=== PATIENT | male | born 1965 | race Caucasian/White ===

== ENCOUNTER 2020-08-27 09:14 | Emergency (ER) | payer BC, OTHER ==
--- OUTSIDE RECORDS SUMMARY | 2020-08-27 09:17 | XMS REPORT | Continuity of Care Document ---
:1965 Author Organization [facility] t Address [address] [place] [address] Care Team Providers Name Role Phone Nemesio MÁRQUEZ, S. Primary Care Physician Micheal GAMBLE Attending Clinician Unavailable Joe Fairbanks MD Attending Clinician Otto RN Attending Clinician Unavailable Lab, Fam Pob I Attending Clinician Unavailable Doctor Unassigned, Name Attending Clinician Unavailable Payers Payer Name Policy Type Policy Effective Date Expiration Date [facility] ce Number BCBSBCBS CHOICE [id number] 2018 [place] PPO/FEDERAL 00:00:00 Christian EMPL [id number] 2018-Presen tPPO Problems Condition Condition Condition Status Onset Resolution Last Treating Co mments Source Name Details Category Date Date Treatment Clinician Date Nocturia/f Nocturia/f Disease Active 2019- [place] requency requency 2-11 Method i 00:00: st 00 Osteopenia Osteopenia Disease Active 2018-05 [place] 0-07 Method[facility] 00:00: st 00 Elevated Elevated Disease Active [place] lipase lipase 7 Methodi 00:00: st 00 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 705 Me thodi to early to early 00:00: st childhood, childhood, 00 depressive depressive disorder disorder 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 7 [place] associated associated 00:00: st with type with type 00 2 diabetes 2 diabetes mellitus mellitus Type 2 Type 2 Disease Active 2015-05 [place] diabetes diabetes 2-12 Method i mellitus mellitus 00:00: st without without 00 complicati complicati on, with on, with long-term long-term current current use of use of insulin insulin Obesity Obesity Disease Active 2015-05 [place] due to due to 06-18 [facility] excess excess 00:00: st calories calories 00 Essential Essential Disease Active 2015-05 Dion yip hypertensi hypertensi 06-18 Me [facility] on on 00:00: st 00 Vitamin D Vitamin D Disease Active [place] deficiency deficiency 01-10 Me thodi 00:00: st 00 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 01-10 Me thodi on on 00:00: st 00 Abnormal Abnormal Disease Active [place] thyroid thyroid 01-10 [facility] function function 00:00: st test test 00 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 Family History Family Member Diagnosis Comments Start Date Stop Date Source Natural father No Known Problems [place] Natural mother No Known Problems [place] Social History Social Habit Start Date Stop Date Quantity Comments Source Tobacco use and 2020-01-13 2020-01-13 Never used [facility] ethodist exposure 00:00:00 00:00:00 Alcohol intake 2020-01-13 2020-01-13 [facility] non-drinker of alcohol (finding) Sex Ass[birth year] At [birth year] [facility] Smoking Status Start Date Stop Date Source Never smoker [facility] Medications Ordered Filled Start Stop Current Ordering Indication Dosage Frequency Signature Comments Components Source Medication Medication Date Date Medication? Clinician (SIG) Name Name blood sugar Yes DX E11.65 [facility] diagnostic 08-25 Patient is Met hodi strips 00:00: testing st (glucose 00 QID. One blood) Touch strip test Verio strips lisinopriL Yes TAKE 1 [place] (PRINIVIL) 4-19 TABLET BY Meth jono 40 mg 00:00: MOUTH st tablet 00 EVERY DAY Farxiga 10 Yes TAKE 1 [place] mg tablet 4-19 TABLET BY Metho di 00:00: MOUTH st 00 EVERY DAY lancets 33 Yes DX E11.65 [place] gauge misc 08-23 Patient is Met hodi 00:00: testing st 00 QID. Please match to machine and insurance. blood sugar 2020- No DX E11.65 [facility] 08-23 Patient is Me thodi strips 00:00: 00:[address] (glucose 00 :00 QID. One blood) Touch strip test Verio strips Victoza Yes INJECT 1.8 [place] 3-Nicholas 0.6 3-01 MG UNDER Method i mg/0.1 mL 00:00: THE SKIN st (18 mg/3 00 ONCE DAILY mL) pen injector blood sugar 2020- No 1{strip Q.25D Inject 1 [facility] 06-09 } strip Methodi strips 00:00: 00:[address] (OneTouch 00 :00 skin 4 Ultra Blue (four) Test Strip) times a strip test day. strips blood sugar 2020- No 1{strip Q.25D Inject 1 [facility] 06-09 } strip Methodi strips 00:00: 00:[address] (OneTouch 00 :00 skin 4 Ultra Blue (four) Test Strip) times a strip test day. strips semaglutide 2019-05 Yes 1mg Q1W Inject 1 [place] (Ozempic) 1 2-14 mg under Meth jono mg/dose (2 00:00: the skin st mg/1.5 mL) 00 every 7 pen days. injector insulin 2019- Yes 4U [id number] Inject 4 [place] aspart, 2-14 [id number] Units Metho di niacinamide 00:00: 3D under the s t , (Fiasp 00 skin 3 FlexTouch (three) U-100 times a Insulin) day with 100 unit/mL meals. On (3 mL) sliding insulin pen scale max dose 10 units per meal. insulin 2019-05- No 5U [id number] Inject [place] lispro 2-14 12-14 [id number] 5-10 Units Methodi (HumaLOG 00:00: 00:[address] KwikPen 00 :00 skin 3 Insulin) (three) 100 unit/mL times a injection day before pen meals. cholecalcif 2019-0 Yes 1000U QD Take 1,000 [place] eladio, 9-08 Units by Methodi vitamin D3, 09:27: mouth st (VITAMIN 13 daily. D3) 1,000 unit tablet lactulose 2019-0 Yes 10g QD Take 10 g [place] 20 gram/30 9-08 by mouth Metho di mL solution 09:27: daily. st 13 riFAXimin 2019-0 Yes 550mg Q.5D Take 550 [place] (XIFAXAN) 9-08 mg by Methodi 550 mg 09:26: mouth 2 st tablet 06 (two) times a day. escitalopra 2019-0 Yes [place] (LEXAPRO) 7-07 Methodi 10 MG 00:00: st tablet 00 amLODIPine 2019-0 2020- No TAKE 1 [place] (NORVASC) 5 6-11 09-08 TABLET BY Ks thodi mg tablet 00:00: 00:[address] 00 :00 EVERY DAY Levemir 2019-0 Yes INJECT 25 [place] FlexTouch 4-13 UNITS Methodi U-100 00:00: UNDER THE st Insuln 100 00 SKIN unit/mL (3 NIGHTLY. mL) insulin pen pen needle, Yes USE [place] diabetic 3-20 DIRECTED 5 Metho di (BD 00:00: TIMES st Ultra-Fine 00 DAILY Mini Pen Needle) 31 gauge x 3/16" needle dapaglifloz 2019-2020- No 10mg QD Take 1 [place] in 3-20 04-19 tablet (10 Methodi (Farxiga) 00:00: 00:00 mg total) st 10 mg 00 :00 by mouth tablet daily. lisinopriL 2020- No 40mg QD Take 1 [place] (PRINIVIL) 3-20 -19 tablet (40 Me thodi 40 mg 00:00: 00:00 mg total) st tablet 00 :00 by mouth daily. amLODIPine No 10mg QD Take 1 [place] (NORVASC) 3-20 -20 tablet (10 Met hodi 10 mg 00:00: 23:59 mg total) st tablet 00 :00 by mouth daily. Victoza No 1.8mg QD Inject 0.3 [place] 3-Nicholas 0.6 -20 - mL (1.8 mg Met hodi mg/0.1 mL 00:00: 00:00 total) st (18 mg/3 00 :00 under the mL) pen skin injector daily. flash 2019- No 1{devic 1 Device [place] glucose 05-0808 e} as needed Method i sensor 00:00: 00:00 (apply one st (FREESTYLE 00 :00 sensor LIV 14 every 14 DAY SENSOR) days to kit upper arm). Place one sensor on the skin every 14 days flash 2019- No 1{devic 1 Device [place] glucose 05-08 0908 e} as needed Method i scanning 00:00: 00:00 (scan st reader 00 :00 sensor as (FREESTYLE needed to LIV 14 check DAY READER) glucose). misc Scan Sensor as needed ONETOUCH 2020- No USE 1 Flash ULTRA BLUE 9-05 02-03 STRIOP 4 Meth jono TEST STRIP 00:00: 00:[address] strip test 00 :00 DAY strips NEEDED clonAZEPAM Yes .5mg QD Take 0.5 [place] (KlonoPIN) 8-22 mg by Methodi 0.5 MG 00:00: mouth once st tablet 00 daily. buPROPion Yes 150mg QD Take 150 [place] SR 6-16 mg by Methodi (WELLBUTRIN 00:00: mouth st SR) 150 MG 00 every 12 hr morning. tablet Vital Signs Vital Name Observation Time Observation Value Comments Source Heart rate 2020-05-04 10:46:00 69 /min [place] Respiratory rate 2020-05-04 10:46:00 18 /min [place] Systolic blood 2020-05-04 10:46:00 128 mm[Hg] [place]rek[place] n Christian pressure Diastolic blood 2020-05-04 10:46:00 63 mm[Hg] [place] Christian pressure Body temperature 2020-05-04 09:48:00 36.5 Lana [place] Body height 2020-01-13 09:21:00 180.3 cm [facility] [place] Body weight 2020-01-13 09:21:00 102.967 kg [facility] [place] BMI 2020-01-13 09:21:00 31.66 kg/m2 [place] Procedures Procedure Date / Time Performed Performing Clinician Sourc e CBC WITH PLATELET AND 2020-04-12 07:53:00 Latricia Fairbanks DIFFERENTIAL COMPREHENSIVE METABOLIC 2020-04-12 07:53:00 Latricia Fairbanks PANEL HEMOGLOBIN A1C 2020-04-12 07:53:00 Latricia Fairbanks BONE DENSITY 2020-04-06 13:52:48 Latricia Fairbanks POC GLUCOSE 2020-01-13 09:29:00 Latricia Fairbanks CBC WITH PLATELET AND 2019-12-25 07:42:00 Latricia Fairbanks DIFFERENTIAL COMPREHENSIVE METABOLIC 2019-12-25 07:42:00 Latricia Fairbanks PANEL HEMOGLOBIN A1C 2019-12-25 07:42:00 Latricia Fairbanks LIPASE LEVEL 2019-12-25 07:42:00 Latricia Fairbanks AMYLASE LEVEL 2019-12-25 07:42:00 Latricia Fairbanks LIPID PANEL 2019-12-25 07:42:00 Latricia Fairbanks MICROALBUMIN / CREATININE 2019-12-25 07:42:00 Latricia Fairbanks URINE RATIO T4, FREE 2019-12-25 07:42:00 Latricia Fairbanks THYROID STIMULATING 2019-12-25 07:42:00 Latricia Fairbanks HORMONE VITAMIN D 25 HYDROXY 2019-12-25 07:42:00 Latricia Fairbanks Christian LEVEL Plan of Care Planned Activity Planned Date Details Comments Source Future Scheduled 2022-05-11 DIABETES: RETINAL EYE [place] [facility] Test 00:00:00 EXAM [code = DIABETES: RETINAL EYE EXAM] Future Scheduled 2021-01-12 DIABETIC FOOT EXAM [place] [facility] Test 00:00:00 [code = DIABETIC FOOT EXAM] Future Scheduled 2020-12-24 URINE MICROALBUMIN [place] [facility] Test 00:00:00 [code = URINE MICROALBUMIN] Future Scheduled 2020-12-05 INFLUENZA VACCINE [place] [facility] Test 00:00:00 [code = INFLUENZA VACCINE] Future Scheduled 2014-01-25 COLONOSCOPY SCREENING [place] [facility] Test 00:00:00 [code = COLONOSCOPY SCREENING] Future Scheduled 2014-01-25 SHINGLES VACCINES (#1) [place] [facility] Test 00:00:00 [code = SHINGLES VACCINES (#1)] Future Scheduled 1982-01-25 Hepatitis C screening [place] [facility] Test 00:00:00 (procedure) [code = 199803950] Future Scheduled 1980 COVID-19 VACCINE (1) [place] [facility] Test 00:00:00 [code = COVID-19 VACCINE (1)] Encounters Start End Encounter Admission Attending Care Care Encounter Source Date/Time Date/Time Type Type Clinicians Facility Department ID 2020-05-04 2020-05-04 Outpatient [facility] [id number] [place] 00:00:00 00:00:00 772 [facility] i 2020-04-19 2020-04-19 Outpatient [facility] [id number] [place] 00:00:00 00:00:00 LATRICIA 649 Method i 2020-04-06 2020-04-06 Outpatient [facility] [id number] [place] 00:00:00 00:00:00 LATRICIA 354 Method i 2020-01-13 2020-01-13 Outpatient [facility] [id number] [place] 00:00:00 00:00:00 LATRICIA 471 Method i 2019-12-16 2019-12-16 Laboratory Lab, [facility] [id number] 14:27:21 14:47:21 Only Fam Pob I Health [id number] [place] [id number] Professio [id number] nal [address] 2019-12-16 2019-12-16 Letter Doctor JAMIA [id number] 00:00:00 00:00:00 (Out) Unassigned, SRIRAM [id number] [facility]sey [facility] [id number] Results Test Description Test Time Test Comments Results Result Comments Source Comprehensive metabolic panel 2020-04-13 00:51:00 Test Item Value Reference Range Interpretation Comme nts Glucose (test code = 121 mg/dL 65-99 H Fasting 2345-7) reference inter kirill For someone without known diabetes, a glu cose valuebetween 10 0 and 125 mg/dL is consis tent withprediabetes and should be confi rmed with afollow-up test . BUN (test code = 3094-0) 19 mg/dL 7-25 Creatinine (test code = 0.65 mg/dL 0.70-1.33 L For patients >49 years of 2160-0) age, the refere nce limitfor Creati nine is approximately 1 3% higher for peopleident ified as -Luciana n. EGFR Non-Afr. Kyr[place]z 109 See_Comment [Aut omated message] The (test code = 2775) system wh ich generated this result tra nsmitted reference range : > OR = 60 mL/min/1.73m 2. The reference range was not used to interpr et this result as normal/abnormal . EGFR 126 See_Comment [Auto mated message] The (test code = 87727-4) system which generated this result tra nsmitted reference range : > OR = 60 mL/min/1.73m 2. The reference range was not used to interpr et this result as normal/abnormal . BUN/creatinine ratio 29 See_Comment H [Autom ated message] The (test code = 3097-3) system which generated this result tra nsmitted reference range : 6 - 22 (calc). The ref erence range was not u sed to interpret this result as normal/abnormal . Sodium (test code = 142 mmol/L 051-131 9713-2) Potassium (test code = 4.1 mmol/L 3.5-5.3 2823-3) Chloride (test code = 109 mmol/L 98-110 2075-0) CO2 (test code = 2028-9) 27 mmol/L 20-32 Calcium (test code = 8.8 mg/dL 8.6-10.3 81664-0) Protein (test code = 6.1 g/dL 6.1-8.1 2885-2) Albumin, S (test code = 3.9 g/dL 3.6-5.1 1751-7) Globulin, total (test 2.2 See_Comment [Auto mated message] The code = 78248-4) system which generated this result tra nsmitted reference range : 1.9 - 3.7 g/dL (calc) . The reference range was not used to interpr et this result as normal/abnormal . Albumin/globulin ratio 1.8 See_Comment [Aut omated message] The (test code = 1759-0) system which generated this result tra nsmitted reference range : 1.0 - 2.5 (calc). The reference range was not u sed to interpret this result as normal/abnormal . Total bilirubin (test 1.8 mg/dL 0.2-1.2 H code = 1975-2) Alkaline phosphatase 45 U/L 35-144 (test code = 6768-6) AST (test code = 1920-8) 24 U/L 10-35 ALT (test code = 1742-6) 23 U/L 9-46 SIOBHAN (test code = SIOBHAN) FASTING:YESFASTING: YES RAC (test code = RAC) Performing Organization Information: Site ID: RGA Name: [facility] Address: [address] [place] [id number] Director: Nacho Randolph Lab Interpretation (test Abnormal code = 64791-6) [place] [facility] [id number] 00:51:00 Test Item Value Reference Interpretation Comments Range Hemoglobin A1C (test 7.8 See_Comment H For tommy eone without code = 4548-4) known diabete s, a hemoglobin A1cv alue of 6.5% or grea ter indicates that they may have diabet es and this should be confirmed with a follow-up test. For someone with kn own diabetes, a kirill ue <7% indicates t hat their diabetes is well controlled and a value greater than or equal t o 7% indicates suboptimal cont rol. A1c targets torres uld be individualiz ed based on durati on of diabetes, ag e, comorbid conditions, and other considerations. Currently, no consensus exist s regarding use ofhemoglobin A1 c for diagnosis o f diabetes for children. [Automated mess age] The system [facility] [email or web address] generated this result transmit geovanna reference range : <5.7 % of total Hgb. The refere nce range was not u sed to interpret th is result as normal/abnormal . SIOBHAN (test code = FASTING:YESFASTIN SIOBHAN) G: YES RAC (test code = Performing RAC) Organization Information: Site ID: RGA Name: [facility] Address: [address] [place] [phone] Director: Nacho Randolph Lab Interpretation Abnormal (test code = 31130-3) [facility] with platelet and [id number] 00:51:00 Test Item Value Reference Interpretation Comments Range WBC (test code = 4.1 See_Comment [Automated message] 3596-2) The system [employer] generated this result transmitted ref erence range: 3.8 - 10 .8 Thousand/uL. Th e reference range was not used to int erpret this result as normal/abnormal . RBC (test code = 4.70 See_Comment [Automated message] 919-8) The system [employer] generated this result transmitted ref erence range: 4.20 - 5 .80 Million/uL. The reference range was not used to int erpret this result as normal/abnormal . HGB (test code = 14.7 g/dL 13.2-17.1 718-7) HCT (test code = 41.3 % 38.5-50.0 4544-3) MCV (test code = 87.9 fL 80.0-100.0 787-2) MCH (test code = 31.3 pg 27.0-33.0 785-6) MCHC (test code = 35.6 g/dL 32.0-36.0 786-4) RDW (test code = 13.4 % 11.0-15.0 788-0) Neutrophils, 2349 See_Comment [Automated mes johnathan] absolute (test The system ich code = 751-8) generated this result transmitted ref erence range: 1,500 - 7,800 cells/uL. The reference range was not used to int erpret this result as normal/abnormal . Lymphocytes, 1201 See_Comment [Automated mes johnathan] absolute (test The system ich code = 731-0) generated this result transmitted ref erence range: 850 - 3, 900 cells/uL. The reference range was not used to int erpret this result as normal/abnormal . Monocytes, 340 See_Comment [Automated mes johnathan] absolute (test The system ich code = 742-7) generated this result transmitted ref erence range: 200 - 95 0 cells/uL. The reference range was not used to int erpret this result as normal/abnormal . Eosinophils, 160 See_Comment [Automated mes johnathan] absolute (test The system ich code = 711-2) generated this result transmitted ref erence range: 15 - 500 cells/uL. The reference range was not used to int erpret this result as normal/abnormal . Basophils, 49 See_Comment [Automated mes johnathan] absolute (test The system ich code = 704-7) generated this result transmitted ref erence range: 0 - 200 cells/uL. The reference range was not used to int erpret this result as normal/abnormal . Neutrophils (test 57.3 % code = 770-8) Lymphocytes (test 29.3 % code = 736-9) Monocytes (test 8.3 % code = 5905-5) Eosinophils (test 3.9 % code = 713-8) Basophils + RC 1.2 % (test code = 706-2) Nucleated RBC Review of maryanne pheral (test code = smear 8251-1) confirmsautomat ed results. Platelet count TNP Thousand/uL TEST(S) NOT (test code = PERFORMED: P LATELET 777-3) COUNT MPV U nable to report due tosignificant p latelet clumping.Platel et estimate appearsnormal. SIOBHAN (test code = FASTING:YESFASTIN SIOBHAN) G: YES RAC (test code = Performing RAC) Organization Information: Site ID: RGA Name: [facility] Address: [address] [place] [phone] Director: Nacho Randolph [facility] [id number] 09:29:00 Test Item Value Reference Range Interpretation Comments POC glucose (test code = 4748329) 131 65-100 nON FASTING [place]
--- NOTE | 2020-08-27 10:13 | ER ---
Nurse's Notes [facility] Name: David France Age: 55 yrs Sex: Male : 1965 Arrival Date: 08/27/2020 Time: 09:19 Bed 7 Private MD: Diagnosis: Low back pain;Radiculopathy, lumbar region Presentation: 08/27 09:38 Chief complaint: Patient states: Pain to L hip area that radiates around and down L ss leg. Pt reports that this pain has been ongoing for weeks, but has gotten worse this morning. Coronavirus screen: Client denies travel out of the [place] in the last 14 days. Ebola Screen: Patient denies exposure to infectious person. Patient denies travel to an Ebola-affected area in the 21 days before illness onset. Initial Sepsis Screen: Does the patient meet any 2 criteria? No. Patient's initial sepsis screen is negative. Does the patient have a suspected source of infection? No. Patient's initial sepsis screen is negative. Risk Assessment: Do you want to hurt yourself or someone else? Patient reports no desire to harm self or others. Onset of symptoms is unknown. 09:38 Method Of Arrival: Ambulatory ss 09:38 Acuity: LARA 3 ss Historical: - Allergies: 09:41 No Known Allergies; ss - PMHx: 09:41 Hypertension; Diabetes - IDDM; Cirrhosis; ss - PSHx: 09:41 neck; ss - Immunization history:: Adult Immunizations up to date. - Social history:: Smoking status: Patient denies any tobacco usage or history of. Screenin:44 Abuse screen: Denies threats or abuse. Denies injuries from another. Nutritional sv screening: No deficits noted. Tuberculosis screening: No symptoms or risk factors identified. Fall Risk None identified. Assessment: 10:12 General: Appears uncomfortable, Behavior is cooperative, appropriate for age, restless. kg Pain: Complains of pain in left leg Pain radiates to back Pain currently is 10 out of 10 on a pain scale. at worst was 10 out of 10 on a pain scale. level that patient reports is acceptable is 5 out of 10 on a pain scale. Quality of pain is described as sharp, Pain began gradually, Pain started 4 weeks ago in back and has gradually gone down to zeus thighs, then just left thigh. Is continuous, Alleviated by nothing. Aggravated by increased activity. Neuro: No deficits noted. 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 Full function Gait is steady. 10:12 Cardiovascular: No deficits noted. Respiratory: No deficits noted. GI: No deficits kg noted. : No deficits noted. EENT: No deficits noted. Derm: No deficits noted. Musculoskeletal: Reports pain in left leg Pain is 10 out of 10 on a pain scale. 10:39 Reassessment: Pt waiting IM shot time before being discharge. sv Vital Signs: 09:38 BP 132 / 67; Pulse 93; Resp 18; Temp 98.3(TE); Pulse Ox 100% on R/A; Weight 102.06 kg; ss Height 5 ft. 11 in. (180.34 cm); Pain 10/10; 10:41 BP 133 / 78; Pulse 93; Resp 18; Pulse Ox 100% ; sv 09:38 Body Mass Index 31.38 (102.06 kg, 180.34 cm) ss ED Course: 09:19 Patient arrived in ED. mr 09:40 Triage completed. ss 09:41 Arm band placed on right wrist. ss 09:43 Sandro Hyde PA is PHCP. jr8 09:43 Isidro Bruce MD is Attending Physician. jr8 09:43 Galina Tang RN is Primary Nurse. sv 09:44 Patient has correct armband on for positive identification. Bed in low position. Call sv light in reach. Door closed. Head of bed elevated. 10:39 No provider procedures requiring assistance completed. Patient did not have IV access sv during this emergency room visit. Administered Medications: 10:25 Drug: morphine 4 mg Route: IM; Site: right gluteus; sv 11:00 Follow up: Response: No adverse reaction; No change in condition sv 10:25 Drug: TORadol (ketorolac) 30 mg Route: IM; Site: right gluteus; sv 11:00 Follow up: Response: No adverse reaction sv 10:25 Drug: Zofran (Ondansetron) 4 mg Route: PO; sv 11:00 Follow up: Response: No adverse reaction sv 11:13 Drug: Dilaudid (HYDROmorphone) 1 mg Route: IM; Site: left gluteus; kg 11:40 Follow up: Response: Pain is decreased kg Outcome: 10:12 Discharge ordered by MD. swartz 11:51 Discharged to home kg 11:51 Condition: improved 11:51 Discharge instructions given to patient, Instructed on discharge instructions, follow up and referral plans. no drinking with medication, no driving heavy equipment, medication usage, Demonstrated understanding of instructions, follow-up care, medications, Prescriptions given X 3. 11:53 Patient left the ED. kg Signatures: Galina Tang, RN Marylu Vasquez Shelby, RN RN ss Roszak, Josh, SOHEILA PARNELL jrSaadia Rodrigues kg
--- NOTE | 2020-08-27 10:13 | EDPHYS ---
Physician Documentation [facility] Name: David France Age: 55 yrs Sex: Male : 1965 Arrival Date: 08/27/2020 Time: 09:19 Bed 7 Private MD: DULCE Physician Isidro Bruce HPI: 08/27 10:47 This 55 yrs old Male presents to ER via Ambulatory with complaints of Back jr8 Pain. 10:47 Patient reports L lower back pain that radiates to L groin and thigh x a few weeks. He jr8 reports pulling an engine out of his car a few weeks ago and experiencing bilateral lower back pain and bilat thigh pain. Since then, this pain remains. He denies numbness, tingling, loss of bowel or bladder control, . Historical: - Allergies: 09:41 No Known Allergies; ss - PMHx: 09:41 Hypertension; Diabetes - IDDM; Cirrhosis; ss - PSHx: 09:41 neck; ss - Immunization history:: Adult Immunizations up to date. - Social history:: Smoking status: Patient denies any tobacco usage or history of. ROS: 10:49 Constitutional: Negative for fever, chills, and weight loss, Cardiovascular: Negative jr8 for chest pain, palpitations, and edema, Respiratory: Negative for shortness of breath, cough, wheezing, and pleuritic chest pain, Abdomen/GI: Negative for abdominal pain, nausea, vomiting, diarrhea, and constipation, Skin: Negative for injury, rash, and discoloration, Neuro: Negative for headache, weakness, numbness, tingling, and seizure. 10:49 Back: Positive for pain at rest, pain with movement, of the left low back. 10:49 MS/extremity: Positive for pain, of the left groin and upper medial thigh. 10:50 All other systems are negative. jr8 Exam: 10:50 Constitutional: This is a well developed, well nourished patient who is awake, alert, jr8 and in no acute distress. Head/Face: Normocephalic, atraumatic. Chest/axilla: Normal chest wall appearance and motion. Nontender with no deformity. No lesions are appreciated. Cardiovascular: Regular rate and rhythm with a normal S1 and S2. No gallops, murmurs, or rubs. Normal PMI, no JVD. No pulse deficits. Respiratory: Lungs have equal breath sounds bilaterally, clear to auscultation and percussion. No rales, rhonchi or wheezes noted. No increased work of breathing, no retractions or nasal flaring. Abdomen/GI: Soft, non-tender, with normal bowel sounds. No distension or tympany. No guarding or rebound. No evidence of tenderness throughout. Male : Normal genitalia with no discharge or lesions. Neuro: Awake and alert, GCS 15, oriented to person, place, time, and situation. Cranial nerves II-XII grossly intact. Motor strength 5/5 in all extremities. Sensory grossly intact. Cerebellar exam normal. Normal gait. 10:50 Back: pain, that is moderate, of the left low back, ROM is painful, with all movement, normal spinal alignment noted, CVA tenderness, is absent, vertebral tenderness, is not appreciated, muscle spasm, is appreciated in the left low back, Straight leg raises: left lower extremity illicits pain, 180 degrees. 10:50 Back: Reproducible pain with pressure to SI joint . 10:50 Musculoskeletal/extremity: Extremities: grossly normal except: noted in the left groin and medial thigh: pain, ROM: full active range of motion, limited active range of motion due to pain, in the left leg, Circulation is intact in all extremities. Pulses: are normal with no appreciated deficits, Perfusion: the patient is normally perfused throughout, noted to have brisk capillary refill, Perfusion: the extremity is normally perfused throughout, with brisk capillary refill, Calf tenderness, is absent, Edema, is not appreciated, Sensation intact. Severe pain noted. DVT Exam: No signs of deep vein thrombosis. Pain reproducible with pressure to femoral nerve. Strong femoral pulse felt. Vital Signs: 09:38 BP 132 / 67; Pulse 93; Resp 18; Temp 98.3(TE); Pulse Ox 100% on R/A; Weight 102.06 kg; ss Height 5 ft. 11 in. (180.34 cm); Pain 10/10; 10:41 BP 133 / 78; Pulse 93; Resp 18; Pulse Ox 100% ; sv 09:38 Body Mass Index 31.38 (102.06 kg, 180.34 cm) MDM: 09:43 Patient medically screened. jr8 10:11 Data reviewed: vital signs, nurses notes, and as a result, I will discharge patientBrook swartz Data interpreted: Pulse oximetry: on room air is 100 %. Interpretation: normal. Counseling: I had a detailed discussion with the patient and/or guardian regarding: the historical points, exam findings, and any diagnostic results supporting the discharge/admit diagnosis, the need for outpatient follow up, a family practitioner, to return to the emergency department if symptoms worsen or persist or if there are any questions or concerns that arise at home. Administered Medications: 10:25 Drug: morphine 4 mg Route: IM; Site: right gluteus; sv 11:00 Follow up: Response: No adverse reaction; No change in condition sv 10:25 Drug: TORadol (ketorolac) 30 mg Route: IM; Site: right gluteus; sv 11:00 Follow up: Response: No adverse reaction sv 10:25 Drug: Zofran (Ondansetron) 4 mg Route: PO; sv 11:00 Follow up: Response: No adverse reaction sv 11:13 Drug: Dilaudid (HYDROmorphone) 1 mg Route: IM; Site: left gluteus; kg 11:40 Follow up: Response: Pain is decreased kg Disposition: 08/27/20 10:12 Discharged to Home. Impression: Low back pain, Radiculopathy, lumbar region. - Condition is Stable. - Discharge Instructions: Back Pain, Adult, Musculoskeletal Pain, Heat Therapy. - Prescriptions for meloxicam 15 mg Oral tablet - take 1 tablet by ORAL route once daily; 10 tablet. Robaxin 500 mg Oral Tablet - take 2 tablet by ORAL route every 6 hours As needed; 40 tablet. Medrol (Nicholas) 4 mg Oral Tablets, Dose Pack - take 1 tablet by ORAL route as directed - follow package instructions; 1 packet. - Work release form, Medication Reconciliation Form, Thank You Letter, Antibiotic Education, Prescription Opioid Use form. - Follow up: Private Physician; When: 5 - 6 days; Reason: Recheck today's complaints, Continuance of care, Re-evaluation by your physician. - Problem is new. - Symptoms have improved. Addendum: 08/29/2020 08:05 Co-signature as Attending Physician, Isidro Bruce MD I agree with the assessment and c finley plan of care. Signatures: Galina Tang RN RN sv Anderson, Corey, MD MD cha Smirch, Shelby RN RN ss Sandro Hyde PA PA jr8 Saadia Caballero kg Corrections: (The following items were deleted from the chart) 08/27 11:53 10:12 08/27/2020 10:12 Discharged to Home. Impression: Low back pain; Radiculopathy, kg lumbar region. Condition is Stable. Forms are Medication Reconciliation Form, Thank You Letter, Antibiotic Education, Prescription Opioid Use. Follow up: Private Physician; When: 5 - 6 days; Reason: Recheck today's complaints, Continuance of care, Re-evaluation by your physician. Problem is new. Symptoms have improved. jr8
[2020-08-27] MEDS ORDERED: MORPHINE 4 MG/ML SYR ONE (10:41)
[2020-08-27] MEDS ORDERED: KETOROLAC 30 MG/ML INJ ONE (10:41)
[2020-08-27] MEDS ORDERED: ONDANSETRON 4 MG (ODT) TAB ONE (10:41)
[2020-08-27] MEDS ORDERED: HYDROMORPHONE HCL 1 MG/ML INJ ONE (11:28)
[2020-08-27 11:58] VITALS: BP 132/67; TEMP 98.3; O2SAT 100
== END 2020-08-27 11:53 | disposition home or self-care (01) ==
LOC: ER 09:14
DX: M54.16 Radiculopathy, lumbar region (principal); E11.9 Type 2 diabetes mellitus without complications; I10 Essential (primary) hypertension; K74.60 Unspecified cirrhosis of liver; Z79.4 Long term (current) use of insulin
CPT/HCPCS: 96372; 99283; J1170